=== PATIENT | male | born 1955 | race African-American/Black ===

== ENCOUNTER 2018-02-20 10:41 | Emergency (ER) | payer SELFPAY ==
[~2018-02-20] VITALS: Ht 170.2 cm; Wt 86.0 kg
[~2018-02-20 10:41] MED LIST: BENZ2TAB PO; CLON0.1T PO; IBUP200C PO; LISI-515 PO; METF500T PO; OMEP40CA2 PO; ZANT150T2 PO
[2018-02-20 10:46] VITALS: BP 192/86; PULSE 90; RESP 18; TEMP 98.1; O2SAT 96
[2018-02-20] MEDS ORDERED: CYCL10TA PO (12:48)
[2018-02-20] MEDS ORDERED: PRED20 PO (12:48)
[2018-02-20] MEDS ORDERED: KETOROLAC TROMETHAMINE 60 MG/2 ML (IM) VIAL IM ONE (13:00)
[2018-02-20] MEDS ORDERED: METO25TA3 PO (13:05)
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
== END 2018-02-20 13:18 | disposition home or self-care (01) ==
LOC: NEPD 10:41
DX: M54.42 Lumbago with sciatica, left side (principal); B20 Human immunodeficiency virus [HIV] disease; F31.9 Bipolar disorder, unspecified; F41.9 Anxiety disorder, unspecified; E11.9 Type 2 diabetes mellitus without complications; B19.20 Unspecified viral hepatitis C without hepatic coma; I10 Essential (primary) hypertension; E78.00 Pure hypercholesterolemia, unspecified; F17.200 Nicotine dependence, unspecified, uncomplicated
CPT/HCPCS: 96372; 99283; J1885

== ENCOUNTER 2018-02-25 13:18 | Emergency (ER) | payer SELFPAY ==
[~2018-02-25] VITALS: Ht 171.4 cm; Wt 86.5 kg
[~2018-02-25 13:18] MED LIST changes: -BENZ2TAB PO; -CLON0.1T PO; +CYCL10TA PO; -METF500T PO; +METO25TA3 PO; -OMEP40CA2 PO
[2018-02-25 13:28] VITALS: BP 148/72; PULSE 91; RESP 20; TEMP 98.6; O2SAT 97
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
[2018-02-25] MEDS ORDERED: QUET-86 PO (13:39)
[2018-02-25] MEDS ORDERED: SERT25TA83 PO (13:39)
[2018-02-25] MEDS ORDERED: KETOROLAC TROMETHAMINE 60 MG/2 ML (IM) VIAL IM ONE (14:00)
[2018-02-25] MEDS ORDERED: LORazepam 2 MG/ML VIAL IM ONE (14:00)
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
[2018-02-25] MEDS ORDERED: TRAM50 PO (15:19)
== END 2018-02-25 17:56 | disposition home or self-care (01) ==
LOC: NEPD 13:18
DX: M48.061 Spinal stenosis, lumbar region without neurogenic claudication (principal); F17.200 Nicotine dependence, unspecified, uncomplicated; I10 Essential (primary) hypertension
CPT/HCPCS: 72131; 96372; 99283; J1885; J2060

== ENCOUNTER 2018-02-28 16:10 | Emergency (ER) | payer SELFPAY ==
[~2018-02-28] VITALS: Ht 171.4 cm; Wt 86.4 kg
[~2018-02-28 16:10] MED LIST changes: -CYCL10TA PO; -IBUP200C PO; +QUET-86 PO; +SERT25TA83 PO; +TRAM50 PO
[2018-02-28 16:16] VITALS: BP 168/80; PULSE 78; RESP 18; TEMP 98.8; O2SAT 100
[2018-02-28 18:17] VITALS: BP 187/93; PULSE 77; RESP 18; TEMP 98.5; O2SAT 100
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
[2018-02-28] MEDS ORDERED: VITA200C3 PO (18:30)
[2018-02-28] MEDS ORDERED: FIBE625T4 PO (18:30)
[2018-02-28] MEDS ORDERED: METO25TA3 PO (18:30)
[2018-02-28] MEDS ORDERED: IBUP1TAB5 PO (18:30)
[2018-02-28] MEDS ORDERED: ARIP1TAB11 PO (18:30)
[2018-02-28] MEDS ORDERED: PRAV20TA2 PO (18:30)
[2018-02-28] MEDS ORDERED: ASPI81TA23 PO (18:30)
[2018-02-28] MEDS ORDERED: QUET1TAB10 PO (18:30)
[2018-02-28] MEDS ORDERED: VENL75CA44 PO (18:30)
[2018-02-28] MEDS ORDERED: SERT-129 PO (18:30)
[2018-02-28] MEDS ORDERED: HYDR-3516 PO (18:35)
[2018-02-28] MEDS ORDERED: ORPHENADRINE INJ 60 MG/2 ML AMP IM ONE (18:45)
== END 2018-02-28 19:56 | disposition home or self-care (01) ==
LOC: NED 16:10 → NEPD 19:56
DX: M48.061 Spinal stenosis, lumbar region without neurogenic claudication (principal); R60.0 Localized edema; E78.00 Pure hypercholesterolemia, unspecified; I10 Essential (primary) hypertension
CPT/HCPCS: 96372; 99283; J2360

== ENCOUNTER 2018-04-03 15:03 | Emergency (ER) | payer SELFPAY ==
[~2018-04-03] VITALS: Ht 170.2 cm; Wt 84.0 kg
[~2018-04-03 15:03] MED LIST changes: +ARIP1TAB11 PO; +ASPI81TA23 PO; +FIBE625T4 PO; +HYDR-3516 PO; +IBUP1TAB5 PO; +PRAV20TA2 PO; -QUET-86 PO; +QUET1TAB10 PO; +SERT-129 PO; -SERT25TA83 PO; +VENL75CA44 PO; +VITA200C3 PO
[2018-04-03 15:08] VITALS: BP 195/94; PULSE 113; RESP 18; TEMP 98.4; O2SAT 100
[2018-04-03] MEDS ORDERED: METO25TA3 PO (15:24)
[2018-04-03] MEDS ORDERED: DICL75TA PO (15:24)
[2018-04-03] MEDS ORDERED: LISI-515 PO (15:24)
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
[2018-04-03] MEDS ORDERED: LISINOPRIL 20 MG TAB PO ONE (15:30)
[2018-04-03] MEDS ORDERED: METOPROLOL TARTRATE 25 MG TAB PO ONE (15:30)
== END 2018-04-03 15:42 | disposition home or self-care (01) ==
LOC: NEPD 15:03
DX: M48.00 Spinal stenosis, site unspecified (principal); I10 Essential (primary) hypertension; E78.00 Pure hypercholesterolemia, unspecified; Z72.0 Tobacco use; Z76.0 Encounter for issue of repeat prescription
CPT/HCPCS: 99283